=== PATIENT | female | born 1995 | race African-American/Black ===

== ENCOUNTER 2016-12-25 12:36 | Emergency (ER) | payer OTHER ==
[2016-12-25 12:26] LABS: INFLUENZA A NEG (NEG); INFLUENZA B NEG (NEG)
== END 2016-12-25 13:07 | disposition home or self-care (01) ==
LOC: CFTX 12:36
PROVIDERS: Physician Assistant
DX: J06.9 Acute upper respiratory infection, unspecified (principal); F17.210 Nicotine dependence, cigarettes, uncomplicated; Z91.040 Latex allergy status
CPT/HCPCS: 87804; 99282